=== PATIENT | female | born 1975 | race Caucasian/White ===

== ENCOUNTER → 2016-06-10 | Outpatient (CLI) | payer OTHER ==
--- NOTE | 2016-06-10 18:36 | DX ---
Sacrum and coccyx 2 Views History: Back pain since April 2016, worse in the morning. Comparison: Lumbar spine from the same day. Findings: There is minimal degenerative change in the left sacroiliac joint. The pubic symphysis is n ormal. No displaced fracture is identified. There is no significant degenerative change. Alignment of the hips is normal. Transitional vertebra is present at the lumbosacral junction with hemisacralizat ion on the left. Bowel gas pattern is normal. An IUD is present. Impression: Minimal degenerative change in the left sacroiliac joint.
--- NOTE | 2016-06-10 18:40 | DX ---
Lumbar spine 3 views History: Back pain since April 2016, worse in the morning. L4-L5 surgery in 1990. Comparison: Sacrum from the same day. Findings: Six nonrib-bearing lumbar-type vertebral bodies are present with a transitional vertebra a t the the lumbosacral junction with hemisacralization on the left. The lowest will be numbered as S1. There is minimal leftward curvature of the lumbar spine. AP alignment is normal. There is mild anter ior height reduction of T12, age indeterminant. Vertebral body heights are otherwise preserved. There is mild vertebral spondylosis throughout the lumbar spine with moderate vertebral spondylosis at L5- S1. Mild facet hypertrophy is present from L4 through S1. There is moderate stool in the proximal col on. IUD is noted. Impression: 1. Moderate degenerative change at L5-S1 with mild vertebral spondylosis throughout the lumbar spine. 2. Mild compression fracture at T12, age indeterminate.
== END ==
LOC: FIMAGING 13:17
PROVIDERS: ATTEND Family Medicine
DX: M51.37 Other intervertebral disc degeneration, lumbosacral region (principal); M47.896 Other spondylosis, lumbar region; M53.3 Sacrococcygeal disorders, not elsewhere classified; M48.54XA Collapsed vertebra, not elsewhere classified, thoracic region, initial encounter for fracture; G89.4 Chronic pain syndrome